=== PATIENT | female | born 1965 | race Hispanic/Latino ===

== ENCOUNTER 2017-06-10 17:40 | Emergency (ER) | payer SELFPAY ==
[2017-06-10] MEDS ORDERED: HYDROcodone/Acetaminophen 5/325 mg Tablet ONE (19:45)
--- NOTE | 2017-06-10 20:24 | ULT ---
RIGHT BREAST ULTRASOUND: History: 51-year-old female presents with a palpable, painful process between 11 and 1 o'clock in the right b reast. FINDINGS: In the 11 to 1 o'clock position there is a 1.5 x 2.8 x 1.8 cm diameter circumscribed anechoic focus with posterior enhancement, evidence for a cyst. There is a second 1.5 x 2.2 x 2.3 cm circumscribed hypoechoic focus immediately adjacent to this larger cyst. At approximately the 3 o'clock position t here is an approximately 1.1 x 0.9 x 0.9 cm diameter somewhat lobulated hypoechoic focus which has s ome through transmission but potentially could have at least a partial solid component. This area ne eds additional evaluation. Additionally in the 11 to 1 o'clock position there are two smaller cysts, less than 1.5 cm in size. One of these appears to contain some debris. There is also a 0.[address] cyst in the subareolar aspect of the breast. IMPRESSION: Multiple circumscribed anechoic foci in the 11 to 1 o'clock position which appear to represent breas t cysts. In the 3 o'clock position there is a somewhat lobulated hypoechoic focus which could also b e cystic but may well also have a solid component. This certainly needs additional imaging evaluatio n. Other small cysts are noted in the breast. BIRADS category 0 - assessment is incomplete. Additional imaging is needed to assign final assessmen t. Follow up bilateral diagnostic mammogram is recommended to evaluate the palpable finding in the r ight breast and to evaluate a potential complex or partially solid/partially cystic mass in the 3 o' clock position of the right breast. POS: LYN
== END 2017-06-10 20:48 | disposition home or self-care (01) ==
LOC: ERS 17:40
DX: N63.10 Unspecified lump in the right breast, unspecified quadrant (principal); N63.20 Unspecified lump in the left breast, unspecified quadrant

== ENCOUNTER 2017-06-14 13:47 | Outpatient (CLI) | payer OTHER ==
--- NOTE | 2017-06-14 14:29 | MMO ---
BILATERAL DIAGNOSTIC MAMMOGRAMS: DATE: 06/14/17 HISTORY: Breast cysts. COMPARISON: 03/18/14 and 06/10/17. FINDINGS: Extremely dense fibroglandular tissue is again demonstrated throughout each breast, decreases sensit ivity of exam. Multiple partially obscured oval and lobular isodense masses of varying size are cristian lar in appearance to the prior study and consistent with multiple cysts seen on sonogram. No spicula tion is apparent. The study was evaluated with the assistance of computer-aided detection. IMPRESSION: Extremely dense fibroglandular tissues and multiple cysts. BIRADS 2: Benign Finding(s) Given the density of breast tissue, MRI screening could be considered in addition to routine mammogr aphy. POS: LYN
== END 2017-06-14 13:48 | disposition home or self-care (01) ==
LOC: MAMMO 13:47
PROVIDERS: ATTEND Family Medicine
DX: N63.0 Unspecified lump in unspecified breast (principal); R92.2 Inconclusive mammogram; N60.19 Diffuse cystic mastopathy of unspecified breast
CPT/HCPCS: 77066; G0204